=== PATIENT | female | born 1945 | race Caucasian/White ===

== ENCOUNTER → 2017-11-05 | Outpatient (REF) | payer MEDICARE, BC ==
[2017-11-06 11:00] LABS: MISCELLANEOUS TEST LAB See Separate Report
== END ==
LOC: M LABNEURO 10:44
DX: G83.9 Paralytic syndrome, unspecified (principal)
CPT/HCPCS: 36415

== ENCOUNTER → 2019-07-29 | Outpatient (CLI) | payer MEDICARE, BC, OTHER ==
[2019-07-29 13:03] LABS: IMMUNOGLOBULIN A 77.2 MG/DL (70-400); IMMUNOGLOBULIN E 14.9 IU/ML (<100)
[2019-08-07 13:07] LABS: STREP PNEUMO TYPE 1 0.8 ug/mL (>1.3); STREP PNEUMO TYPE 12F 0.5 ug/mL (>1.3); STREP PNEUMO TYPE 14 0.9 ug/mL (>1.3); STREP PNEUMO TYPE 19A 4.6 ug/mL (>1.3); STREP PNEUMO TYPE 19F 2.4 ug/mL (>1.3); STREP PNEUMO TYPE 23F 0.9 ug/mL (>1.3); STREP PNEUMO TYPE 3 3.2 ug/mL (>1.3); STREP PNEUMO TYPE 4 0.3 ug/mL (>1.3); STREP PNEUMO TYPE 6B 4.3 ug/mL (>1.3); STREP PNEUMO TYPE 7F 1.2 ug/mL (>1.3); STREP PNEUMO TYPE 8 0.7 ug/mL (>1.3); STREP PNEUMO TYPE 9N 1.8 ug/mL (>1.3); STREP PNEUMO TYPE 9V 0.4 ug/mL (>1.3)
== END ==
LOC: M LAB 10:51
PROVIDERS: ATTEND Allergy & Immunology Allergy
DX: D84.9 Immunodeficiency, unspecified (principal)

== ENCOUNTER → 2019-09-30 | Outpatient (CLI) | payer MEDICARE, BC, OTHER ==
[2019-10-27 14:43] LABS: STREP PNEUMO TYPE 1 1.9 ug/mL (>1.3); STREP PNEUMO TYPE 12F 0.4 ug/mL (>1.3); STREP PNEUMO TYPE 18C 9.5 ug/mL (>1.3); STREP PNEUMO TYPE 19A 6.1 ug/mL (>1.3); STREP PNEUMO TYPE 19F 2.4 ug/mL (>1.3); STREP PNEUMO TYPE 23F 3.4 ug/mL (>1.3); STREP PNEUMO TYPE 3 3.6 ug/mL (>1.3); STREP PNEUMO TYPE 4 0.7 ug/mL (>1.3); STREP PNEUMO TYPE 6B 11.1 ug/mL (>1.3); STREP PNEUMO TYPE 7F 4.1 ug/mL (>1.3); STREP PNEUMO TYPE 8 0.6 ug/mL (>1.3); STREP PNEUMO TYPE 9N 1.4 ug/mL (>1.3); STREP PNEUMO TYPE 9V 0.8 ug/mL (>1.3)
== END ==
LOC: M LAB 10:16
PROVIDERS: ATTEND Allergy & Immunology Allergy
DX: D84.9 Immunodeficiency, unspecified (principal)